=== PATIENT | male | born 1985 | race Hispanic/Latino ===

== ENCOUNTER 2018-06-20 18:26 | Inpatient (IN) | payer MEDICAID ==
--- NOTE | 2018-06-20 19:08 | C.PDOC ---
History Of Present Illness 32 y/o male presents to the ED requesting detox. Patient has a PMHx of heroin abuse, and last used earlier today. Otherwise he denies other drug use. Denies suicidal or homicidal ideation. Patient offers no physical complaints. Time Seen by Provider: 06/20/18 19:07 Chief Complaint (Nursing): Substance Abuse History Per: Patient History/Exam Limitations: no limitations Onset/Duration Of Symptoms: Days Current Symptoms Are (Timing): Still Present Suicide/Self Injury Attempted (Context): None Modifying Factor(s): Other (Heroin) Severity: Moderate Pain Scale Rating Of: 4 Associated Symptoms: denies: Suicidal Thoughts, Suicidal Plan Involuntary Hold By: None Additional History Per: Prior Records Past Medical History Reviewed: Historical Data, Nursing Documentation, Vital Signs Vital Signs: Last Vital Signs Temp 98.5 F 06/20/18 18:37 Pulse 120 H 06/20/18 18:37 Resp 18 06/20/18 18:37 BP 109/74 06/20/18 18:37 Pulse Ox 96 06/20/18 19:38 - Medical History PMH: HTN Denies: Diabetes, Hepatitis, HIV, Seizures, Sexually Transmitted Disease Other PMH: Substance abuse - [facility] DETOXIFICATION SERVICES FOR SUBSTANCE ABUSE TREATMENT (09/17/17) GROUP INSPECTOR PRECISION FOR SUBSTANCE ABUSE TREATMENT, PSYCHOEDUCATION (09/17/17) GROUP INSPECTOR PRECISION FOR SUBSTANCE ABUSE, COGNITIVE BEHAVIORAL (09/17/17) INDIV PSYCHOTHERAPY FOR SUBSTANCE ABUSE TREATMENT, SUPPORT (09/17/17) INDIV PSYCHOTHERAPY FOR SUBSTANCE ABUSE, COGNITIV BEHAVIORAL (09/17/17) INDIV PSYCHOTHERAPY FOR SUBSTANCE ABUSE, PSYCHOEDUCATION (09/17/17) Family History: States: Unknown Family Hx - Social History Hx Alcohol Use: No Hx Substance Use: Yes - Immunization History Hx Tetanus Toxoid Vaccination: No Hx Influenza Vaccination: No Hx Pneumococcal Vaccination: No Review Of Systems Constitutional: Negative for: Fever, Chills Gastrointestinal: Negative for: Nausea, Vomiting Psych: Positive for: Other (Heroin abuse). Negative for: Suicidal ideation Physical Exam - Physical Exam Appears: Non-toxic, No Acute Distress Skin: Warm, Dry Head: Normacephalic Eye(s): bilateral: Normal Inspection Oral Mucosa: Moist Neck: Trachea Midline, Supple Chest: Symmetrical Cardiovascular: Rhythm Regular Respiratory: No Rales, No Rhonchi, No Wheezing Gastrointestinal/Abdominal: Soft, No Tenderness, No Distention Back: Normal Inspection Extremity: Normal ROM Extremity: Bilateral: Atraumatic Pulses: Left Dorsalis Pedis: Normal, Right Dorsalis Pedis: Normal Neurological/Psych: Oriented x3 Gait: Steady ED Course And Treatment - Laboratory Results Result Diagrams: 06/20/18 19:49 06/20/18 19:49 O2 Sat by Pulse Oximetry: 96 (RA) Pulse Ox Interpretation: Normal Progress Note: Patient prescreened for detox. Blood work and urine sent. Crisis team to evaluate and arrange bed placement. Disposition Discussed With Dr.: Jairo Fleming Comment: accepted the pt on his service and took over the care at 9PM Doctor Will See Patient In The: ED Counseled Patient/Family Regarding: Studies Performed, Diagnosis - Disposition Disposition: HOSPITALIZED Disposition Time: 19:08 Condition: FAIR Forms: [facility] ([place]) - Clinical Impression Clinical Impression: Drug abuse, Opioid use disorder, severe, dependence - Scribe Statement The provider has reviewed the documentation as recorded by the Scribe (Marie Lynch) Provider Attestation: All medical record entries made by the Scribe were at my direction and personally dictated by me. I have reviewed the chart and agree that the record accurately reflects my personal performance of the history, physical exam, medical decision making, and the department course for this patient. I have also personally directed, reviewed, and agree with the discharge instructions and disposition. Decision To Admit - Pt Status Changed To: Hospital Disposition Of: Inpatient - Admit Certification Admit to Inpatient:: After my assessment, the patient will require hospitalization for at least two midnights. This is because of the severity of symptoms shown, intensity of services needed, and/or the medical risk in this patient being treated as an outpatient. - InPatient: Physician Admission Certification: I certify that this patient requires 2 or more midnights of care for the following reason:: After my assessment, the patient will require hospitalization for at least two midnights. This is because of the severity of symptoms shown, intensity of services needed, and/or the medical risk in this patient being treated as an outpatient. - . Bed Request Type: Detox Admitting Physician: Jairo Fleming Patient Diagnosis: Drug abuse, Opioid use disorder, severe, dependence
[2018-06-20 20:04] LABS: EOS # 0.1 K/uL (0.0-0.7); LYMPH # 2.1 K/uL (1.0-4.3); RBC 5.64 Mil/uL (4.40-5.90)
[2018-06-20 20:11] LABS: BASO # 0.1 K/uL (0.0-0.2); BASO % 0.6 % (0.0-2.0); LYMPH % 23.2 % (20.0-40.0); MEAN CELL VOLUME 83.3 fL (80.0-94.0); MEAN CORPUSCULAR HEMOGLOBIN 28.5 pg (27.0-31.0); MEAN CORPUSCULAR HGB CONC 34.1 g/dL (33.0-37.0); MEAN PLATELET VOLUME 9.1 fL (7.2-11.7); MONO # 0.7 K/uL (0.0-0.8); MONO % 7.6 % (0.0-10.0); NEUT # 6.2 K/uL (1.8-7.0); NEUT % 67.6 % (50.0-75.0); RED CELL DISTRIBUTION WIDTH 15.4 % (11.5-14.5)
[2018-06-20 20:14] LABS: HEMOGLOBIN 16.1 g/dL (12.0-18.0); WHITE BLOOD COUNT 9.1 K/uL (4.8-10.8)
[2018-06-20 20:32] LABS: ALB/GLOB RATIO 1.6 (1.0-2.1); ALBUMIN 4.5 g/dL (3.5-5.0); ALT/SGPT 35 U/L (21-72); AST/SGOT 24 U/L (17-59); BLOOD UREA NITROGEN 14 mg/dL (9-20); CALCIUM 9.5 mg/dl (8.6-10.4); GFR AFRICAN-AMERICAN > 60; GFR NON-AFRICAN AMERICAN > 60
[2018-06-20 20:36] LABS: SQUAMOUS EPITHIAL < 1 /hpf (0-5); URINE BILIRUBIN 1+ (NEGATIVE); URINE BLOOD NEGATIVE (NEGATIVE); URINE CLARITY Hazy (Clear); URINE COLOR Amber (YELLOW); URINE GLUCOSE (UA) NORMAL (Normal); URINE LEUKOCYTE ESTERASE NEG Leu/uL (Negative); URINE PROTEIN 2+ mg/dL (NEGATIVE)
[2018-06-20 20:46] LABS: BARBITURATES, UR NEGATIVE (NEGATIVE); BENZODIAZEPINES, UR NEGATIVE (NEGATIVE); PHENCYCLIDINE, UR NEGATIVE (NEGATIVE)
[2018-06-20 20:50] LABS: OPIATES, UR POSITIVE (NEGATIVE)
--- NOTE | 2018-06-20 21:24 | PCM.BM ---
<Maikel Cohen - Last Filed: 06/20/18 21:23> Treatment Plan Problems - Problems identified on initial assessmt potential for opiate withdrawal Date Initiated: 06/20/18 Time Initiated: 21:23 Status: Active Treatment assets and liabiliti Patient Assests: motivated, ADL independent, physically healthy Patient Liabilities: substance abuse, medical problems - Milieu Protocol Maintain good personal hygiene: daily Encourage regular showers, daily Remind patient to perform daily oral care, daily Assist patient to perform ADL's Conduct patient checks and document Observation sheet: Q15 minutes Maintain personal safety: every shift Educate patient to report safety concerns to staff, every shift Monitor environment for contraband/sharps Medication safety: Monitor for expected outcome, potential side effects: every shift, Assess barriers to learning: every shift, Assess readiness for medication education: every shift <Angélica Leal - Last Filed: 06/22/18 10:33> Family Contact Family involvement: Famliy/SO not involved - Goals for Treatment Patient goals for treatment: Complete detox and apply for short-term rehab and then Vivitrol maintenance. Discharge/Continuing Care - Education Needs Education Needs: Patient Medication, Patient Diagnosis/Disease Process, Patient Coping Skills, Patient Anger Management skills, Patient Placement options, Patient Community resources - Discharge Discharge Criteria: No longer exhibiting s/s of withdrawal, Reduction of target symptoms Discharge to:: Substance Abuse Rehab - Treatment Team Participation Patient/Family/SO Statement: 06/22/18 10:34 "I wanna do rehab and then Vivitrol..." Discussed with Family/SO: No Was Patient/Family/SO present at Treatment Team Meeting: Yes <Misti Carlos - Last Filed: 06/22/18 17:59> - Diagnosis (1) Opioid use disorder, severe, dependence Status: Acute Interventions: 06/22/18 17:59 * Assess 7x/week regarding severity of withdrawal * Educate regarding risks, benefits, side effects and alternatives of medications * Use Motivational Interviewing for abstinence * Use CBT for relapse prevention * Medication management for withdrawal symptoms * Encourage medication assisted treatment *
--- NOTE | 2018-06-21 11:29 | PCM.PSYCH ---
Initial Psychiatric Evaluation - Initial Psychiatric Evaluation Type of Admission: Voluntary Legal Status: Capacity Chief Complaint (in patient's own words): "I need to stop using heroin" History of Present Illness and Precipitating Events: HPI: Patient is a 32 year old single male who lives with his girlfriend, who reports for detox from heroin abuse. He states he was recently admitted at [facility] after he was found unresponsive in his car after overdosing on heroin. He states that he used to use 10 bags intravenously daily, however currently has overdosed by only using 1-2 bags. He states that he believes that he might have had some Fentanyl mixed with his heroin which caused the overdose. He states he has overdosed on heroin about 20 times in the past 4 years. He states he started using heroin heavily 4 years ago when he lost his job. He admits to feeling a little anxious and depressed, however denies suicidal or homicidal thoughts. He denies auditory or visual hallucinations. He denies feeling paranoid. He now complains of withdrawal symptoms, states he feels abdominal cramping, nausea, diffuse body aches, decreased sleep, decreased appetite. Past psychiatric hospitalizations: Has been to detox >10 times. Has been to rehab for 2 weeks. Patient has had prior detox here in September 2017. Social hx: Smokes 1/2 ppd for 16-17 years. Denies alcohol use. (+) Heroin use, intravenous, 10 bags. Currently not employed. 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 He lives with his girlfriend, who doesn't use currently. No children. Family hx: Brother: bipolar, schizophrenia. Parents: depression PMH: Pulmonary HTN Meds: Revatio 3times daily Allergies: NKDA Current Medications: Active Medications Generic Name Dose Route Start Last Admin Trade Name Freq PRN Reason Stop Dose Admin Clonidine HCl 0.1 mg 06/21/18 01:40 Catapres PO Q6 PRN Opiate Withdrawal Home Med 1 tab 06/21/18 10:00 Patient's Own Medication PO TID ALFREDO Hydroxyzine HCl 25 mg 06/21/18 01:39 06/21/18 08:53 Atarax PO 25 mg Q6 PRN Administration Anxiety Ibuprofen 600 mg 06/21/18 01:42 Motrin Tab PO Q6 PRN Pain, moderate (4-7) Methadone HCl 20 mg 06/21/18 10:00 06/21/18 10:10 Methadone PO 06/25/18 09:59 20 mg Q24H ALFREDO Administration Taper Trazodone HCl 50 mg 06/21/18 01:41 Desyrel PO HS PRN Insomnia Past Psychiatric History - Past Psychiatric History Previous Treatment History: Inpatient Pertinent Medical Hx (Current Medical&Sleep Prob, Allergies): Allergies Allergy/AdvReac Type Severity Reaction Status Date / Time No Known Allergies Allergy Verified 06/20/18 18:39 Sildenafil Citrate [Revatio] 20 mg PO TID 06/20/18 Review of Systems - Psychiatric Psychiatric: Abnormal Sleep Pattern, Anxiety, Depression. absent: Auditory Hallucinations, Homicidal Ideation, Suicidal Ideation, Visual Hallucinations Mental Status Examination - Personal Presentation Personal Presentation: Looks stated age - Affect Affect: Depressed - Motor Activity Motor Activity: Calm - Reliability in Providing Information Reliability in Providing Information: Fair - Speech Speech: Organized, Relevant, Coherent - Mood Mood: Depressed, Anxious - Formal Thought Process Formal Thought Process: No Impairment - Obsessions/Compulsions Obsessions: No Compulsions: No - Cognitive Functions Orientation: Person, Place, Situation, Time Sensorium: Alert Attention/Concentration: Attentive Judgement: Intact, as evidence by: Insight regarding need for hospitalization Memory: Recent intact, as evidence by: Ability to recall events of the day - Risk Risk: Withdrawal, Diminished functioning DSM 5 DX - DSM 5 DSM 5 Diagnosis: Opioid use disorder, severe Opioid withdrawal - Recommended/Plan of Treatment Treatment Recommendations and Plan of Treatment: Opioid use disorder severe Opioid withdrawal Methadone taper Clonidine 0.1mg PO Q6 PRN Atarax 25mg PO Q6 PRN Motrin 600mg PO Q6 PRN Trazodone 50mg PO HS PRN Attend groups and activities All risks, benefits, and alternatives of medications discussed, patient agreed and understood Attend groups and activities Supportive therapy and psychoeducation [place] for abstinence CBT for relapse prevention Encourage MAT Patient states he would like to go to [facility] 34 mins Case discussed with Dr. Breanna Abad, PGY1
[2018-06-21] MEDS: Patient's Own Medication - Tablet/Capusle PO SCH ×2 (23:21→23:22)
[2018-06-22 10:35] VITALS: RESP 18
--- NOTE | 2018-06-22 11:35 | PCM.PYCHPN ---
Psychiatric Progress Note - Psychiatric Progress Note Patient seen today, length of contact: 16 mins Patient Chief Complaint: "I need to stop using heroin" Problems Identified/Issues Discussed: Patient seen and evaluated. Chart reviewed and case discussed with nursing staff. He states he has not slept well, only slept about 4-5 hours. He denies abdominal pain, nausea, vomiting, diarrhea. He admits to feeling tired. He denies feeling anxious or depressed. He denies feeling paranoia. Denies auditory or visual hallucinations. Denies suicidal or homicidal ideation. State he is tolerating detox with Methadone without any issues. Patient is social, interacting with staff and other patients. Support given and psychoeducation given. Medical Record Reviewed: Yes Mental Status Examination - Cognitive Function Orientation: Person, Place, Situation, Time Memory: Intact Attention: WNL Concentration: WNL Association: WNL Fund of Knowledge: WNL - Mood Mood: Neutral - Affect Affect: Constricted, Depressed - Speech Speech: Appropriate - Formal Thought Process Formal Thought Process: No Impairment - Suicidal Ideation Suicidal Ideation: No - Homicidal Ideation Homicidal Ideation: No Goal/Treatment Plan - Goal/Treatment Plan Progress Toward Problem(s) and Goals/Treatment Plan: Opioid use disorder severe Opioid withdrawal Methadone taper Clonidine 0.1mg PO Q6 PRN Atarax 25mg PO Q6 PRN Motrin 600mg PO Q6 PRN Trazodone 50mg PO HS PRN Attend groups and activities All risks, benefits, and alternatives of medications discussed, patient agreed and understood Attend groups and activities Supportive therapy and psychoeducation [place] for abstinence CBT for relapse prevention Encourage MAT Patient states he would like to go to [facility] Case discussed with Dr. Breanna Abad, PGY1
--- NOTE | 2018-06-23 12:53 | PCM.PYCHPN ---
Psychiatric Progress Note - Psychiatric Progress Note Patient seen today, length of contact: 16 mins Patient Chief Complaint: "Better a little" Problems Identified/Issues Discussed: The pt is seen, chart reviewed, case discussed with staff. The pt is compliant with medications and reports no side-effects. Symptoms are improving but needs more time to stabilize. After care discussed, support and psychoeducation given. Medication Change: Yes (detox changes daily) Medical Record Reviewed: Yes Mental Status Examination - Cognitive Function Orientation: Person, Place, Situation, Time Memory: Intact Attention: WNL Concentration: WNL Association: WNL Fund of Knowledge: WNL - Mood Mood: Neutral - Affect Affect: Constricted, Depressed - Speech Speech: Appropriate - Formal Thought Process Formal Thought Process: No Impairment - Suicidal Ideation Suicidal Ideation: No - Homicidal Ideation Homicidal Ideation: No Goal/Treatment Plan - Goal/Treatment Plan Need for Continued Stay: Discharge may exacerbated symptoms, Severe functional impairment Progress Toward Problem(s) and Goals/Treatment Plan: Continue medications Support and psychoeducation daily Attend groups and activities daily After care planning by OTIS
[2018-06-24 08:54] VITALS: BP 106/70; PULSE 78; TEMP 97.5; O2SAT 97
--- NOTE | 2018-06-24 10:19 | PCM.PYCHDC ---
Mental Status Examination - Mental Status Examination Orientation: Person, Place, Situation, Time Memory: Intact Mood: Neutral Affect: Constricted Speech: Soft Attention: WNL Concentration: WNL Association: WNL Fund of Knowledge: WNL Formal Thought Process: No Impairment Description of patient's judgement and insight: good, fair Psychotic Thoughts and Behaviors: denies any AVH Suicidal Ideation: No Current Homicidal Ideation?: No Discharge Summary - Discharge Note Reason for Hospitalization: HPI: Patient is a 32 year old single male who lives with his girlfriend, who reports for detox from heroin abuse. He states he was recently admitted at [facility] after he was found unresponsive in his car after overdosing on heroin. He states that he used to use 10 bags intravenously daily, however currently has overdosed by only using 1-2 bags. He states that he believes that he might have had some Fentanyl mixed with his heroin which caused the overdose. He states he has overdosed on heroin about 20 times in the past 4 years. He states he started using heroin heavily 4 years ago when he lost his job. He admits to feeling a little anxious and depressed, however denies suicidal or homicidal thoughts. He denies auditory or visual hallucinations. He denies feeling paranoid. He now complains of withdrawal symptoms, states he feels abdominal cramping, nausea, diffuse body aches, decreased sleep, decreased appetite. Past psychiatric hospitalizations: Has been to detox >10 times. Has been to rehab for 2 weeks. Patient has had prior detox here in September 2017. Social hx: Smokes 1/2 ppd for 16-17 years. Denies alcohol use. (+) Heroin use, intravenous, 10 bags. Currently not employed. 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 He lives with his girlfriend, who doesn't use currently. No children. Family hx: Brother: bipolar, schizophrenia. Parents: depression PMH: Pulmonary HTN Meds: Revatio 3times daily Allergies: NKDA Consultations:: List each consultation separately and include: 1. Reason for request. 2. Findings. 3. Follow-up Summary of Hospital Course include:: 1. Description of specific treatment plan utilized for patients during their course of treatmen. 2. Summarize the time- course for resolution of acute symptoms and/or regressed behaviors. 3. Describe issues identified and worked on during hospitalization. 4. Describe medication utilized. 5. Describe medical problems identified and treated. 6. Reassessment of suicide risk - Final Diagnosis (DSM 5) Condition upon Discharge: FAIR DSM 5: Opioid use disorder, severe Opioid withdrawal Disposition: HOME/ ROUTINE Prescriptions/Medication Reconciliation: traZODone [Desyrel] 50 mg PO HS PRN #30 tab PRN Reason: Insomnia
== END 2018-06-24 10:45 | disposition home or self-care (01) | DRG 745 ==
LOC: C.ER 18:26 → C.7D 21:00
PROC: HZ2ZZZZ Detoxification Services for Substance Abuse Treatment (ICD-10-PCS; principal; 2018-06-20)
PROC: HZ52ZZZ Individual Psychotherapy for Substance Abuse Treatment, Cognitive-Behavioral (ICD-10-PCS; 2018-06-20)
PROC: HZ59ZZZ Individual Psychotherapy for Substance Abuse Treatment, Supportive (ICD-10-PCS; 2018-06-20)
PROC: HZ56ZZZ Individual Psychotherapy for Substance Abuse Treatment, Psychoeducation (ICD-10-PCS; 2018-06-20)
PROC: HZ42ZZZ Group Counseling for Substance Abuse Treatment, Cognitive-Behavioral (ICD-10-PCS; 2018-06-20)
PROC: HZ46ZZZ Group Counseling for Substance Abuse Treatment, Psychoeducation (ICD-10-PCS; 2018-06-20)
PROC: GZHZZZZ Group Psychotherapy (ICD-10-PCS; 2018-06-20)
PROC: GZ58ZZZ Individual Psychotherapy, Cognitive-Behavioral (ICD-10-PCS; 2018-06-20)
PROC: GZ56ZZZ Individual Psychotherapy, Supportive (ICD-10-PCS; 2018-06-20)
DX: F11.23 Opioid dependence with withdrawal (principal); I10 Essential (primary) hypertension; I27.20 Pulmonary hypertension, unspecified; G47.00 Insomnia, unspecified; F17.210 Nicotine dependence, cigarettes, uncomplicated; Z81.8 Family history of other mental and behavioral disorders